=== PATIENT | male | born 1950 | race Two or more races ===

== ENCOUNTER 2022-10-20 08:30 | Inpatient (IN) | payer OTHER ==
[~2022-10-20] VITALS: Ht 180.3 cm; Wt 95.3 kg
[~2022-10-20 08:30] MED LIST: ATORVASTATIN CA20 MG PO; DORZOLAMIDE-TIM10 ML OPHT; GLUMETZA500 MG PO; LOSARTAN-HCTZ1 EAC2 PO; TAMS0.4C PO
[2022-10-26] MEDS ORDERED: DORZOLAMIDE HCL10 ML (08:33)
[2022-10-26] MEDS ORDERED: AMLODIPINE BESYL5 MG (08:33)
[2022-10-26] MEDS ORDERED: LATANOPROST2.5 ML (08:33)
[2022-10-29] MEDS ORDERED: PERCOCET 10-321 EACH PO (10:56)
== END 2022-10-29 13:32 | disposition home or self-care (01) | DRG 330 ==
LOC: O/R 10-26 05:15 → SURH 10-26 05:15
PROVIDERS: ADMIT Colon & Rectal Surgery; ATTEND Colon & Rectal Surgery
PROC: 0DBP4ZZ Excision of Rectum, Percutaneous Endoscopic Approach (ICD-10-PCS; 2022-10-26)
PROC: 07BB4ZZ Excision of Mesenteric Lymphatic, Percutaneous Endoscopic Approach (ICD-10-PCS; 2022-10-26)
PROC: 0DJD8ZZ Inspection of Lower Intestinal Tract, Via Natural or Artificial Opening Endoscopic (ICD-10-PCS; 2022-10-26)
PROC: 0DTN4ZZ Resection of Sigmoid Colon, Percutaneous Endoscopic Approach (ICD-10-PCS; principal; 2022-10-26 07:00)
DX: C19 Malignant neoplasm of rectosigmoid junction (principal); C18.6 Malignant neoplasm of descending colon; Z20.822 Contact with and (suspected) exposure to COVID-19